=== PATIENT | male | born 1970 | race Caucasian/White ===

== ENCOUNTER 2017-10-30 15:18 | Emergency (ER) | payer OTHER ==
[2017-10-30] MEDS ORDERED: Tetracaine 0.5% OPTH.SOL 4 ML* 1 DROP BTL LEFT EYE ONE (16:04)
[2017-10-30] MEDS ORDERED: Eye Irrigation Solution 30 ML BOTTLE LEFT EYE ONE (16:04)
[2017-10-30] MEDS ORDERED: Fluorescein Sodium TOPICAL* 1 MG TEST OPHTHALMIC ONE (16:04)
[2017-10-30 16:16] VITALS: BP 119/78
--- NOTE | 2017-10-30 16:38 | UC ---
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 FOR TWO DAYS LEFT EYE HAS BEEN SORE AND RED, TODAY HAS CRUSTY DISCHARGE. HAD BEEN USING A SNOWBLOWER YESTERDAY. UNSURE IF ANYTHING GOT INTO EYE. NO FEVER. NO CHANGE IN VISION. MILD PHOTOPHOBIA. NO PAIN WITH EYE MOVEMENT - History of Current Complaint Chief Complaint: UCEye Stated Complaint: LEFT EYE COMPLAINT Time Seen by Provider: 10/30/17 15:33 Hx Obtained From: Patient Onset/Duration: Gradual Onset, Lasting Days Timing: Constant Severity Initially: Mild Severity Currently: Mild Location of Injury: Conjunctiva Aggravating Factor(s): Nothing Alleviating Factor(s): Nothing Associated Signs And Symptoms: Positive: Photophobia - MILD, Drainage (Purulent) - Risk Factors Penetrating Injury Risk Factor: Negative Acute Glaucoma Risk Factors: Negative Optic Artery Occlusion Risk Factors: Negative - Allergies/Home Medications Allergies/Adverse Reactions: Allergies Allergy/AdvReac Type Severity Reaction Status Date / Time No Known Allergies Allergy Verified 10/30/17 15:58 Home Medications: Home Medications Gabapentin CAP(*) [Neurontin 400 mg CAP(*)] 800 mg PO TID 10/30/17 [History Confirmed 10/30/17] Multivitamins/Minerals TAB* [Theragran/minerals TAB*] 1 tab PO DAILY 10/30/17 [ History Confirmed 10/30/17] Nortriptyline HCl [Pamelor] 150 mg PO BEDTIME 10/30/17 [History Confirmed ] Omeprazole CAP* [Prilosec CAP* 20 MG] 40 mg PO DAILY 10/30/17 [History Confirmed 10/30/17] Phentermine HCl [Adipex-P] 37.5 mg PO DAILY 10/30/17 [History Confirmed 10/30/17 ] Simvastatin [Zocor 40 MG (NF)] 40 mg PO QPM 10/30/17 [History Confirmed 10/30/17 ] PMH/Surg Hx/FS Hx/Imm Hx Previously Healthy: Yes - Surgical History Surgical History: Yes Surgery Procedure, Year, and Place: right eye surgery. hemorrhoidectomy - Family History Known Family History: Negative: Diabetes - Social History Occupation: Disabled Lives: With Family Alcohol Use: None Substance Use Type: None Substance Use Comment - Amount & Last Used: percocet Smoking Status (MU): Current Every Day Smoker Type: Cigarettes Amount Used/How Often: 1ppd Have You Smoked in the Last Year: Yes Household Exposure Type: Cigarettes Cessation Counseling: Patient Advised to Stop Review of Systems Constitutional: Negative Skin: Negative Eyes: Drainage - CRUSTING, Eye Redness, Photophobia - MILD ENT: Negative Respiratory: Negative Cardiovascular: Negative Gastrointestinal: Negative Genitourinary: Negative Motor: Negative Neurovascular: Negative Musculoskeletal: Negative Neurological: Negative Psychological: Negative Is Patient Immunocompromised?: No All Other Systems Reviewed And Are Negative: Yes Physical Exam Triage Information Reviewed: Yes Appearance: Well-Appearing, No Pain Distress, Well-Nourished Vital Signs: Initial Vital Signs Temp 98.7 F 10/30/17 15:54 Pulse 97 10/30/17 15:54 Resp 14 10/30/17 15:54 BP 119/78 10/30/17 15:54 Eyes: Positive: Conjunctiva Inflamed - LEFT, Discharge, Other: - SMALL CORNEAL ABRASION WITH FLUORESCEIN UPTAKE LEFT EYE 1 OCLOCK ENT Exam: Normal ENT: Positive: Normal ENT inspection, Hearing grossly normal, Pharynx normal, TMs normal Dental Exam: Normal Neck exam: Normal Neck: Positive: Supple, Nontender, No Lymphadenopathy Respiratory Exam: Normal Respiratory: Positive: Chest non-tender, Lungs clear, Normal breath sounds, No respiratory distress, No accessory muscle use Cardiovascular Exam: Normal Cardiovascular: Positive: RRR, No Murmur, Pulses Normal, Brisk Capillary Refill Abdominal Exam: Normal Musculoskeletal Exam: Normal Musculoskeletal: Positive: Strength Intact, ROM Intact Neurological Exam: Normal Psychological Exam: Normal Skin Exam: Normal Eye Complaint Course/Dx - Differential Dx/Diagnosis Differential Diagnosis/HQI/PQRI: Conjunctivitis, Corneal Abrasion Provider Diagnoses: LEFT CORNEAL ABRASION; LEFT CONJUNCTIVITIS Discharge - Discharge Plan Condition: Stable Disposition: HOME Prescriptions: Tobramycin 0.3% OPHTH.RAUL* 1 drop LEFT EYE Q4H #1 btl Patient Education Materials: Corneal Abrasion (ED), Conjunctivitis (ED) Referrals: Lorne Noonan MD [Primary Care Provider] - Adelaide Valdovinos MD [Medical Doctor] -
== END 2017-10-30 16:33 | disposition home or self-care (01) ==
LOC: UCCORT 15:18
DX: S05.02XA Injury of conjunctiva and corneal abrasion without foreign body, left eye, initial encounter (principal); X58.XXXA Exposure to other specified factors, initial encounter; Y93.9 Activity, unspecified; Y92.9 Unspecified place or not applicable; Y99.9 Unspecified external cause status; H10.9 Unspecified conjunctivitis; H54.40 Blindness, one eye, unspecified eye; F17.210 Nicotine dependence, cigarettes, uncomplicated
CPT/HCPCS: 99212; A9270-GY; G0463